=== PATIENT | male | born 2005 | race Caucasian/White ===

== ENCOUNTER 2025-06-02 19:48 | Emergency (ER) | payer OTHER ==
[~2025-06-02] VITALS: Ht 182.9 cm; Wt 92.9 kg
[2025-06-02] MEDS ORDERED: DOXY-441 PO (22:43)
[2025-06-02 22:45] VITALS: BP 127/67; TEMP 97.7; O2SAT 99
[2025-06-02] MEDS: DOXYCYCLINE HYCLATE 100 MG TABLET PO ONE (22:55)
== END 2025-06-02 22:58 | disposition home or self-care (01) ==
LOC: M ED 19:48
DX: L60.0 Ingrowing nail (principal); L03.031 Cellulitis of right toe; Z88.0 Allergy status to penicillin; Z79.2 Long term (current) use of antibiotics